=== PATIENT | male | born 1950 | race Caucasian/White ===

== ENCOUNTER 2025-02-24 13:47 | Inpatient (IN) | payer MEDICARE ==
[~2025-02-24] VITALS: Ht 172.7 cm; Wt 90.0 kg
--- NOTE | 2025-02-24 15:37 | RADIOLOGY REPORT ---
CLINICAL INDICATION: LEFT HIP PAIN TECHNIQUE: 1 radiographic views of the pelvis and 3 views of the left hip were obtained. Comparison: None FINDINGS/IMPRESSION: There is no evidence of acute fracture or dislocation. The visualized joint space is well maintained. The alignment is anatomical. There is no radiopaque foreign body.
--- NOTE | 2025-02-24 15:37 | ELECTROCARDIOGRAPH REPORT ---
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 Todd Powers Measurements Intervals [place] Rate: 76 P: 44 [place]: 196 QRS: 0 QRSD: 112 T: 65 QT: 383 QTc: 431 Interpretive Statements Sinus rhythm Incomplete right bundle branch block Electronically Signed On 02-27-2025 11:03:[address] Todd Powers Please click the below link to view image of tracing.
[2025-02-24] MEDS: diazepam 5mg tablet PO STA (15:46)
--- NOTE | 2025-02-24 15:46 | RADIOLOGY REPORT ---
EXAM: DI CHEST,SINGLE VIEW Indication: Pain Technique: Single frontal view of the chest was obtained Comparison: None FINDINGS: Lines and Tubes: None Lungs: No focal consolidation. Low lung volumes. Pleura: No effusion. No pneumothorax. Cardiomediastinal contours: Unremarkable. Atherosclerotic vascular calcifications of the thoracic ao rta are noted. Vascular stent projects over the mediastinum. Bones: No acute osseous abnormality. IMPRESSION: No acute cardiopulmonary disease. Low lung volumes.
--- NOTE | 2025-02-24 15:53 | Physician Documentation ---
History of Present Illness ~ Chief Complaint: Weakness Stated Complaint: LETHARGY Time Seen by MD: 14:49 OK to notify your PCP?: Yes Source: patient, family HPI Patient is seen today with his with concern for significant changes of cognition with significant altered mental status. Patient's states he does have the beginnings of dementia but states over the last couple of days his mental status has changed significantly. Patient has been in a long-term care facility for the last month recovering from pneumonia that was diagnosed about a month ago. Patient does have history of stroke and is not ambulatory and has weakness of the left side of his body. Patient currently is non communicative. Patient's is very concerned about him and states that his cognition has changed and been altered significantly since just two days ago. Patient has become combative sometimes with physical therapy. They have no other concern or complaint at this time. Medication Reconciliation Allergies: Coded Allergies: hydrochlorothiazide (Verified Allergy, Unknown, 02/24/25) Scheduled Aspirin (Aspirin), 1 TAB.CHEW PO DAILY, (Reported) Atorvastatin Calcium (Atorvastatin Calcium), 1 TAB PO HS, (Reported) Carvedilol (Carvedilol), 1 TAB PO BID, (Reported) Fluticasone Propionate (Fluticasone Propionate Hfa), 1 PUFFS INH BID, (Reported) Indapamide (Indapamide), 1 TAB PO DAILY, (Reported) Lacosamide (Lacosamide), 1 TAB PO BID, (Reported) Levetiracetam (Keppra), 7.5 ML PO BID, (Reported) Pantoprazole Sodium (Pantoprazole Sodium), 1 TAB PO DAILY, (Reported) Valsartan (Valsartan), 1 TAB PO DAILY, (Reported) Review of Systems Constitutional: Denies: chills, fever, weakness Eyes: Denies: pain, blurred vision ENT: Denies: ear pain, nose pain, throat pain, mouth pain Respiratory: Denies: cough, shortness of breath Cardiovascular: Denies: chest pain, palpitations Gastrointestinal: Denies: abdominal pain, nausea, vomiting Genitourinary: Denies: burning, dysuria Male Genitalia: Denies: penile discharge, testicular pain Neurological: Denies: headache, dizziness Musculoskeletal: Denies: pain, swelling Integumentary: Denies: rash, lesions Allergic/Immunologic: Denies: hives, itching Hematologic/Lymphatic: Denies: no symptoms reported Psychiatric: Denies: depression, anxiety Physical Exam Vital Signs: Temperature: 100.0, Source: Oral, Heart Rate: 100, Respiratory Rate: 16, BP: 125/75, Pulse Oximetry: 98, Weight: 90.000 Oxygen Flow Rate: 0 Physical Exam General: Awake, no acute distress. HEENT: Conjunctiva pink, Sclera clear, Mucus Membranes moist. Neck: Supple without masses and tenderness. Resp: Unlabored. Lungs clear to auscultation bilaterally. Heart: Regular Rate and rhythm, normal S1 and S2 without murmur, rub or gallop. Abdomen: Soft and non tender no organomegaly Extremities: No cyanosis,clubbing or edema. Skin: Warm and Dry. Progress Results/Orders Results/Orders Orders - JONATHON ELDRIDGE PAC Chest,Single View (02/24/25 15:25) Ct Cervical Spine (02/24/25 15:25) Ct Head (02/24/25 15:25) Straight Cath For Urine Sample (02/24/25 15:25) Saline Lock (02/24/25 ) Page Hospitalist (02/24/25 15:53) Fill Out Med Reconciliation (02/24/25 15:53) Completed Orders - JONATHON ELDRIDGE PAC Electrocardiogram (02/24/25 15:25) Cbc/Diff (02/24/25 15:25) Chest,Single View (02/24/25 15:25) Ct Cervical Spine (02/24/25 15:25) Ct Head (02/24/25 15:25) BMP (02/24/25 15:25) Hs Troponin I W Calculations (02/24/25 15:25) Hs Troponin I W Calculations (02/24/25 17:25) Diazepam Tablet (Valium Tablet) (02/24/25 15:27) Normal Saline 1000ml (Sodium Chloride 10 (02/24/25 15:27) Man Diff (02/24/25 16:05) Medications Received in ER Medications (Trade) Dose Ordered Sig/Marcello Route PRN Reason Start Time Stop Time Status Last Admin Dose Admin (Valium tablet) 5 mg ONCE STAT PO 02/24/25 15:27 02/24/25 15:30 DC 02/24/25 15:46 5 MG Sodium Chloride 1,000 ml @ 1,000 mls/hr ONCE STAT IV 02/24/25 15:27 02/24/25 16:26 DC 02/24/25 16:48 1,000 MLS/HR Vital Signs 02/24/25 02/24/25 02/24/25 14:22 14:54 14:54 Temp 100.0 Pulse 83 100 Resp 16 16 B/P (MAP) 127/85 125/75 (92) Pulse Ox 98 98 O2 Flow Rate 0 0 Laboratory Tests Test 02/24/25 16:05 02/24/25 16:59 White Blood Count 9.8 Red Blood Count 4.83 Hemoglobin 15.3 Hematocrit 45.5 Mean Corpuscular Volume 94.2 Mean Corpuscular Hemoglobin 31.7 H Mean Corpuscular Hemoglobin Concent 33.6 Red Cell Distribution Width 14.7 H Platelet Count 170 Mean Platelet Volume 8.5 Neutrophils (%) (Auto) 68.1 Lymphocytes (%) (Auto) 11.3 L Monocytes (%) (Auto) 16.0 H Eosinophils (%) (Auto) 4.3 Basophils (%) (Auto) 0.3 Neutrophils # (Auto) 6.6 Lymphocytes # (Auto) 1.1 Monocytes # (Auto) 1.6 H Eosinophils # (Auto) 0.4 Basophils # (Auto) 0.0 CBC Comment Differential Total Cells Counted 100 Neutrophils % (Manual) 74.0 Band Neutrophils % 1.0 Lymphocytes % (Manual) 14.0 L Monocytes % (Manual) 9.0 Eosinophils % (Manual) 2.0 Platelet Estimate Normal Red Blood Cell Morphology Normal Basophilic Stippling Sodium Level 140 Potassium Level 3.9 Chloride Level 105 Carbon Dioxide Level 30.4 Anion Gap 5 L Blood Urea Nitrogen 21 H Creatinine 2.04 H Estimated GFR/1.73 m2 32 BUN/Creatinine Ratio 10.3 Glucose Level 120 H Lactic Acid Level 1.6 Calcium Level 9.7 Troponin I High Sensitivity 8 Albumin 2.6 L Procalcitonin < 0.05 Chemistry Comments Urine Specimen Description Straight cath Urine Color Yellow Urine Clarity Clear Urine pH 6.0 Urine Specific [place] 1.020 Urine Protein Trace Urine Glucose (UA) Negative Urine Ketones Negative Urine Occult Blood Negative Urine Nitrite Negative Urine Bilirubin Negative Urine Urobilinogen 0.2 Urine Leukocyte Esterase Negative Urine RBC 0-2 Urine WBC None seen Urine Squamous Epithelial Cells None seen Urine Bacteria None seen Urine Mucus None seen Urine Culture Indicated Not ind Volume Urine Centrifuged 10 ml Urine Comment EKG/XRAY/CT/US/VASC/MRI Chest X-Ray : Additional Comments Chest x-ray interpreted by myself today shows no large effusion, no large infiltrate, normal mediastinum. Low lung volume. DIAGNOSTIC RADIOLOGY Patient: MARLON DEE Medical Record: [id number] [facility] : 1950, Age: 74 Sex: Male Location: ER Patient Status: [facility] ER Service Date/Time: 02/24/251524 Ordering Physician: JONATHON ELDRIDGE PAC Exam: CHEST,SINGLE VIEW EXAM: DI CHEST,SINGLE VIEW Indication: Pain Technique: Single frontal view of the chest was obtained Comparison: None FINDINGS: Lines and Tubes: None Lungs: No focal consolidation. Low lung volumes. Pleura: No effusion. No pneumothorax. Cardiomediastinal contours: Unremarkable. Atherosclerotic vascular calcifications of the thoracic aorta are noted. Vascular stent projects over the mediastinum. Bones: No acute osseous abnormality. IMPRESSION: No acute cardiopulmonary disease. Low lung volumes. Electronically Signed by:JEANETTE HUNTER MD Date & Time: 02/24/251543 Dictated by: JEANETTE HUNTER MD Dictation date and time: 02/24/251543 Primary Care Provider: NO PRIMARY CARE PROVIDER cc: JONATHON ELDRIDGE PAC ~ Bone/Soft Tissue X-Ray (Ext.) : Additional Comment X-ray of pelvis and left hip were reviewed by myself today and show no sign of acute fracture, bones in anatomic alignment, no osteolytic or blastic lesion. DIAGNOSTIC RADIOLOGY Patient: MARLON DEE Medical Record: [id number] [facility] : 1950, Age: 74 Sex: Male Location: ER Patient Status: REG ER Service Date/Time: 02/24/251 Ordering Physician: MARIBEL SUAREZ MD Exam: HIP UNILATERAL 2 VIEWS CLINICAL INDICATION: LEFT HIP PAIN TECHNIQUE: 1 radiographic views of the pelvis and 3 views of the left hip were obtained. Comparison: None FINDINGS/IMPRESSION: There is no evidence of acute fracture or dislocation. The visualized joint space is well maintained. The alignment is anatomical. There is no radiopaque foreign body. Electronically Signed by:JEANETTE HUNTER MD Date & Time: 02/24/251534 Dictated by: JEANETTE HUNTER MD Dictation date and time: 02/24/251534 Primary Care Provider: NO PRIMARY CARE PROVIDER cc: MARIBEL SUAREZ MD ~ CT : Impression CAT SCAN Patient: MARLON DEE Medical Record: [id number] [facility] : 1950, Age: 74 Sex: Male Location: ER Patient Status: REG ER Service Date/Time: 02/24/251524 Ordering Physician: JONATHON ELDRIDGE PAC Exam: CT CERVICAL SPINE EXAM: CT CT CERVICAL SPINE INDICATION: GLF TECHNIQUE: Non contrast axial images of the cervical spine have been obtained with coronal and sagittal reformatted images. CT scans at this facility use dose modulation, iterative reconstruction, and/or weight based dosing when appropriate to reduce radiation dose to as low as reasonably achievable. COMPARISON: None FINDINGS: ANATOMY: Cervical lordosis is maintained. VERTEBRAL BODIES: The vertebral bodies are normal in height and alignment. The dens is intact, the lateral masses of C1 are normally aligned, and the atlantodental interval is normal for age. SPINAL CANAL: No significant spinal canal stenosis. INTERVERTEBRAL DISCS: No CT findings to suggest traumatic disc herniation or acute hematoma. SOFT TISSUES: There is no prevertebral soft tissue swelling. OTHER: The partially visualized lung apices are clear. IMPRESSION: 1. No acute cervical spine fracture or malalignment. Electronically Signed by:LOPEZ WOODS MD Date & Time: 02/24/251642 Dictated by: LOPEZ WOODS MD Dictation date and time: 02/24/251642 Primary Care Provider: NO PRIMARY CARE PROVIDER cc: JONATHON ELDRIDGE PAC ~ CAT SCAN Patient: MARLON DEE Medical Record: [id number] [facility] : 1950, Age: 74 Sex: Male Location: ER Patient Status: [facility] ER Service Date/Time: 02/24/251524 Ordering Physician: JONATHON ELDRIDGE PAC Exam: CT HEAD EXAM: CT CT HEAD INDICATION: GLF TECHNIQUE: CT images of the head were obtained without administration of IV contrast. CT scans at this facility use dose modulation, iterative reconstruction, and/or weight based dosing when appropriate to reduce radiation dose to as low as reasonably achievable. COMPARISON: None available at the time of dictation. FINDINGS: PARENCHYMA: No acute hemorrhage. There is no mass effect, midline shift, or herniation. There is preservation of the ruiz white differentiation. Large area of encephalomalacia of the right posterior frontal lobe parietal lobe and right temporal lobe. Streak artifact in the region of the right anterior temporal lobe in the right middle cranial fossa. Encephalomalacia of the left anterior frontal lobe. Imaging findings compatible with prior insult /infarct. VENTRICLES: No hydrocephalus. The ventricles and sulcation are prominent, compatible with cerebral volume loss. EXTRA-AXIAL SPACES: No extra-axial fluid collections. OTHER: The bony structures are intact. Scattered paranasal sinus mucosal thickening. IMPRESSION: 1. No CT evidence of an acute intracranial abnormality. Electronically Signed by:LOPEZ WOODS MD Date & Time: 02/24/25 1643 Dictated by: LOPEZ WOODS MD Dictation date and time: 02/24/25 1628 Primary Care Provider: NO PRIMARY CARE PROVIDER cc: JONATHON ELDRIDGE PAC ~ Medical Decision Making Findings Patient is seen today with his with concern for significant changes of cognition with significant altered mental status. Patient's states he does have the beginnings of dementia but states over the last couple of days his mental status has changed significantly. Patient has been in a long-term care facility for the last month recovering from pneumonia that was diagnosed about a month ago. Patient does have history of stroke and is not ambulatory and has weakness of the left side of his body. Patient currently is non communicative. Patient's is very concerned about him and states that his cognition has changed and been altered significantly since just two days ago. Patient has become combative sometimes with physical therapy. They have no other concern or complaint at this time. Patient did have elevated creatinine just over two. Labs were otherwise unremarkable. CT scan of spine and head were unremarkable. Chest x-ray and left hip x-ray were also unremarkable without any sign of acute fracture. Patient was admitted to hospitalist for altered mental status and JUWAN. Departure Disposition: 09 ADMITTED INPATIENT Admitted to Inpatient Unit: to hospitalist Admission Level of Care: Med/Surg Impression: Primary Impression: Altered mental status Qualified Codes: R41.82 - Altered mental status, unspecified Additional Impression: JUWAN (acute kidney injury) Condition: Stable Additional Instructions: Patient did have elevated creatinine just over two. Labs were otherwise unremarkable. CT scan of spine and head were unremarkable. Chest x-ray and left hip x-ray were also unremarkable without any sign of acute fracture. Patient was admitted to hospitalist for altered mental status and JUWAN. Referrals: NO PRIMARY CARE PROVIDER (PCP) Signature Scribe Signature: No scribe Attestation: No scribe JONATHON ELDRIDGE PAC February 24, 2025 15:53
[2025-02-24 16:22] LABS: BASOPHILS % (AUTO) 0.3 % (0-1); EOSINOPHILS # (AUTO) 0.4 X10'3 (0-0.9); EOSINOPHILS % (AUTO) 4.3 % (0-6); HEMATOCRIT 45.5 % (42.0-52.0); HEMOGLOBIN 15.3 g/dl (14.0-17.9); LYMPHOCYTES # (AUTO) 1.1 X10'3 (1.1-4.8); LYMPHOCYTES % (AUTO) 11.3 % (21-51); MEAN CORPUSCULAR HEMOGLOBIN 31.7 PG (27.0-31.0); MEAN CORPUSCULAR HGB CONC 33.6 g/dL (33.0-36.5); MEAN CORPUSCULAR VOLUME 94.2 FL (78-98); MEAN PLATELET VOLUME 8.5 FL (7.4-10.4); MONOCYTES # (AUTO) 1.6 X10'3 (0-0.9); NEUTROPHILS # (AUTO) 6.6 X10'3 (1.8-7.7); NEUTROPHILS % (AUTO) 68.1 % (42-75); PLATELET COUNT 170 X10'3 (140-440); RED BLOOD COUNT 4.83 X10'6 (4.70-6.10); RED CELL DISTRIBUTION WIDTH 14.7 % (11.5-14.5); WHITE BLOOD COUNT 9.8 X10'3 (4.5-11.0)
[2025-02-24 16:32] LABS: ALBUMIN 2.6 G/DL (3.4-5.0); ANION GAP 5 (8-16); BLOOD UREA NITROGEN 21 MG/DL (7-18); BUN/CREATININE RATIO 10.3 (10.0-20.0); CALCIUM 9.7 MG/DL (8.5-10.1); CHLORIDE 105 MMOL/L (99-107); CREATININE 2.04 MG/DL (0.60-1.10); GLUCOSE 120 MG/DL (70-104); POTASSIUM 3.9 MMOL/L (3.5-5.1); SODIUM 140 MMOL/L (135-145); TOTAL CARBON DIOXIDE 30.4 MMOL/L (24-32); eCRCL 31 ML/MIN; eGFR 32 ML/MIN
--- NOTE | 2025-02-24 16:45 | RADIOLOGY REPORT ---
EXAM: CT CT HEAD INDICATION: GLF TECHNIQUE: CT images of the head were obtained without administration of IV contrast. CT scans at [facility] facility use dose modulation, iterative reconstruction, and/or weight based dosing when appropriate to reduce radiation dose to as low as reasonably achievable. COMPARISON: None available at the time of dictation. FINDINGS: PARENCHYMA: No acute hemorrhage. There is no mass effect, midline shift, or herniation. There is pres ervation of the ruiz white differentiation. Large area of encephalomalacia of the right posterior fro ntal lobe parietal lobe and right temporal lobe. Streak artifact in the region of the right anterior temporal lobe in the right middle cranial fossa. Encephalomalacia of the left anterior frontal lobe. Imaging findings compatible with prior insult /infarct. VENTRICLES: No hydrocephalus. The ventricles and sulcation are prominent, compatible with cerebral vo lume loss. EXTRA-AXIAL SPACES: No extra-axial fluid collections. OTHER: The bony structures are intact. Scattered paranasal sinus mucosal thickening. IMPRESSION: 1. No CT evidence of an acute intracranial abnormality.
--- NOTE | 2025-02-24 16:46 | RADIOLOGY REPORT ---
EXAM: CT CT CERVICAL SPINE INDICATION: GLF TECHNIQUE: Non contrast axial images of the cervical spine have been obtained with coronal and sagitt al reformatted images. CT scans at this facility use dose modulation, iterative reconstruction, and/o r weight based dosing when appropriate to reduce radiation dose to as low as reasonably achievable. COMPARISON: None FINDINGS: ANATOMY: Cervical lordosis is maintained. VERTEBRAL BODIES: The vertebral bodies are normal in height and alignment. The dens is intact, the la teral masses of C1 are normally aligned, and the atlantodental interval is normal for age. SPINAL CANAL: No significant spinal canal stenosis. INTERVERTEBRAL DISCS: No CT findings to suggest traumatic disc herniation or acute hematoma. SOFT TISSUES: There is no prevertebral soft tissue swelling. OTHER: The partially visualized lung apices are clear. IMPRESSION: 1. No acute cervical spine fracture or malalignment.
[2025-02-24] MEDS: normal saline 1000ml 1,000 ML IV STA (16:48)
[2025-02-24] MEDS ORDERED: magnesium sulf-water 2g/50mL 50 ML IV PRN (17:00)
[2025-02-24] MEDS ORDERED: magnesium hydroxide 30ml (MOM) UD suspension PO PRN (17:00)
[2025-02-24] MEDS ORDERED: potassium Cl 40MEQ/1/2NS 520ml 520 ML IV PRN (17:00)
[2025-02-24] MEDS ORDERED: potassium Cl 20 mEq SR tablet PO PRN ×2 (17:00)
[2025-02-24] MEDS ORDERED: magnesium sulf-water 4G/100mL 100 ML IV PRN (17:00)
[2025-02-24] MEDS ORDERED: ondansetron/PF 4mg/2ml inj IV PRN (17:00)
[2025-02-24] MEDS ORDERED: mag hydrox/Alum hydrox/simeth 30ml oral suspension PO PRN (17:00)
[2025-02-24] MEDS ORDERED: HYDROcodone/acetaminophen 10/325mg tab PO PRN (17:00)
[2025-02-24] MEDS ORDERED: acetaminophen 325mg tablet PO PRN ×2 (17:00)
[2025-02-24 17:07] LABS: TOTAL CELLS COUNTED 100
[2025-02-24 17:08] LABS: PLATELET ESTIMATE NORMAL
[2025-02-24 17:16] LABS: BILIRUBIN,URINE NEGATIVE (Neg); CLARITY,URINE CLEAR (Clear); COLOR,URINE YELLOW (Yellow); GLUCOSE, URINE NEGATIVE (Neg); KETONES,URINE NEGATIVE (Neg); LEUKOCYTE ESTERASE ,URINE NEGATIVE (Neg); NITRITES, URINE NEGATIVE (Neg); OCCULT BLOOD,URINE NEGATIVE (Neg); PROTEIN,URINE TRACE mg/dl (Neg); UROBILINOGEN,URINE 0.2 E.U/dL (0.2-1.0)
[2025-02-24] MEDS ORDERED: PANT40TA54 PO (17:19)
[2025-02-24] MEDS ORDERED: CARV6.253 PO (17:19)
[2025-02-24] MEDS ORDERED: FLUT10.67 INH (17:19)
[2025-02-24] MEDS ORDERED: LACO200T4 PO (17:19)
[2025-02-24] MEDS ORDERED: ASPI-1265 PO (17:19)
[2025-02-24] MEDS ORDERED: INDA1.255 PO (17:19)
[2025-02-24] MEDS ORDERED: LEVE100S PO (17:19)
[2025-02-24] MEDS ORDERED: ATOR40TA72 PO (17:19)
[2025-02-24] MEDS ORDERED: VALS160T30 PO (17:19)
[2025-02-24 17:30] LABS: UA COLLECTION TYPE STRAIGHT CATH
[2025-02-24 17:31] LABS: BACTERIA,URINE NONE SEEN /HPF (Neg); MUCUS STRANDS NONE SEEN /LPF (Neg); RBC,URINE 0-2 /HPF (0-2); SQUAMOUS EPITHELIAL CELL,UR NONE SEEN /LPF (FEW); WBC,URINE NONE SEEN /HPF (0-4)
--- NOTE | 2025-02-24 18:04 | HISTORY AND PHYSICAL ---
History & Physical Providers to CC ~ History of Present Illness Reason for Admit\Complaint: Metabolic encephalopathy History of Present Illness Elvis Medrano is a 74-year-old male with past medical history of dementia, nonverbal at baseline, CVA with residual left-sided weakness, seizures, recent pneumonia who was brought to the ED by his spouse due to significant altered mental status x 2 days. Patient's was not present at bedside at the time of admission assessment therefore history taking was limited and most initial history was taken from ED note. Per ED note, patient has been in a long-term care facility for the last month recovering from pneumonia. Patient is to be admitted for further workups and treatment. Allergies: Coded Allergies: hydrochlorothiazide (Verified Allergy, Unknown, 02/24/25) Home Medications Home Medications Active Reported Aspirin 81 Mg Tab.chew 1 Tab.chew PO DAILY Atorvastatin Calcium 40 Mg Tablet 1 Tab PO HS Pantoprazole Sodium 40 Mg Tablet.dr 1 Tab PO DAILY Indapamide 1.25 Mg Tablet 1 Tab PO DAILY Lacosamide 200 Mg Tablet 1 Tab PO BID Keppra (Levetiracetam) 100 Mg/Ml Solution 7.5 Ml PO BID Fluticasone Propionate Hfa (Fluticasone Propionate) 44 Mcg Aer.w.adap 1 Puffs INH BID Carvedilol 6.25 Mg Tablet 1 Tab PO BID Valsartan 160 Mg Tablet 1 Tab PO DAILY Past Medical History Past Medical History Dementia CVA Pneumonia Seizures Hyperlipidemia Hypertension Past Surgical History Surgical History Comment Noncontributory Past Social History Social History Comment Alcohol: No Tobacco: No Illicit drug use: No Living situation: Assisted living facility ROS ROS Other than positives in HPI, all 14 review of systems are negative Exam Vitals: Vital Signs Date Time Temp Pulse Resp B/P (MAP) Pulse Ox O2 Delivery O2 Flow Rate FiO2 02/24/25 14:54 02/24/25 14:54 100 16 98 0 02/24/25 14:22 100.0 General: NAD, demented, nonverbal HEENT: Normocephalic, PERRLA Neck: Supple, trachea midline, no JVD Chest: Clear to auscultation bilaterally Cardiovascular: RRR, S1&S2 Abdomen: Soft and nontender Extremities: No cyanosis/clubbing/or edema Central Nervous System: No focal deficits Musculoskeletal: No paraspinal muscle tenderness, no muscle spasm Skin: Warm and intact Diagnostic Data Last Recorded Lab Results: 02/24/25 1605 02/24/25 1605 Additional Plan # Metabolic encephalopathy # Dementia, nonverbal -recent pna, fever today; CT head negative, CT cervical spine negative, hip x- ray negative, chest x-ray negative, normal lactic acid, no leukocytosis, negative procal -start abx, IVF, aspiration precaution -follow CT chest # Severe malnutrition -station mechanic consult # CVA w/ left-sided residual weakness # HLD # HTN -unknown etiology atherosclerotic vs embolic -admit on tele, start aspirin, statin, losartan -follow lipid panel # Seizure disorder -continue home Keppra, follow Keppra level DVT/VTE prophylaxis: Heparin Code status: Full code by default until further discussion with spouse Date of Service: February 24, 2025 Billing Provider: CARLINE SCHROEDER Common Visit Codes: [id number]-[id number] INP/OBS CARE (HIGH) CARLINE SCHROEDER February 24, 2025 18:04
[2025-02-24] MEDS: aspirin 81mg tab.chew PO ONE (18:10)
[2025-02-24] MEDS: normal saline 1000ml 1,000 ML IV SCH (18:28)
[2025-02-24] MEDS ORDERED: acetaminophen 1,000mg/100ml IV 100 ML IV PRN (19:00)
[2025-02-24] MEDS: CefTRIAXone 2gm/D5W 50ml BAG 50 ML IV ONE (19:12)
[2025-02-24] MEDS: docusate sod 100mg capsule PO SCH (19:25)
[2025-02-24] MEDS: K and/or MAG REPLACEMENT MC SCH (19:25)
[2025-02-24] MEDS: losartan 50mg tablet PO ONE (19:25)
[2025-02-24] MEDS: azithromycin/NS 500mg/250ml 250 ML IV ONE (19:55)
[2025-02-24] MEDS: heparin, porcine 5000 units/ml vial SQ SCH (20:00)
--- NOTE | 2025-02-24 20:20 | RADIOLOGY REPORT ---
Procedure: CT CT CHEST [facility] Study Date and Requested Time: 02/24/2025 07:35 P M History: Pneumonia, fever Comparison: None Dose: CTDI: 18.43 mGy DLP: 616.27 mGycm Technique: Multiplanar images obtained through the chest without contrast Findings: The thyroid gland is unremarkable. Mild cardiomegaly. Aortic valvular replacement. Heavy atherosclerotic calcification of the left ante rior descending artery versus stenting. No evidence of aortic aneurysm. The pulmonary trunk is devendra l in size. No significant mediastinal or hilar lymphadenopathy. Bilateral dependent , lingula and right middle lobe atelectasis. No pneumothorax, pleural effusion or focal airspace consolidation. Partially imaged 4.3 cm left renal upper pole cyst. Otherwise, Partial view of the upper abdomen is unremarkable. The soft tissues are unremarkable. Sclerotic focus over the left proximal humerus and left scapula wh ich represent bone islands / blastic lesions. Mild loss of vertebral body height of T4 through T7 of unknown chronicity, likely chronic. Impression: Right middle lobe, lingula and Bilateral dependent atelectasis. Otherwise , no evidence of acute intr athoracic abnormalities. Partially imaged 4.3 cm left renal upper pole cyst.
[2025-02-24] MEDS: atorvastatin 20mg tablet PO SCH ×2 (20:57→21:16)
[2025-02-24] MEDS: levetiracetam 100mg/ml oral solution 5ml UD cup PO SCH (21:05)
[2025-02-25] MEDS: aspirin 81mg tab.chew PO SCH (09:42)
[2025-02-25] MEDS: losartan 50mg tablet PO SCH (09:43)
[2025-02-25 10:26] LABS: BASOPHILS % (AUTO) 0.3 % (0-1); EOSINOPHILS # (AUTO) 0.3 X10'3 (0-0.9); EOSINOPHILS % (AUTO) 3.7 % (0-6); HEMATOCRIT 44.6 % (42.0-52.0); LYMPHOCYTES % (AUTO) 13.1 % (21-51); MEAN CORPUSCULAR HEMOGLOBIN 31.6 PG (27.0-31.0); MEAN CORPUSCULAR HGB CONC 33.6 g/dL (33.0-36.5); MEAN CORPUSCULAR VOLUME 93.8 FL (78-98); MEAN PLATELET VOLUME 8.6 FL (7.4-10.4); MONOCYTES % (AUTO) 12.5 % (2-12); NEUTROPHILS # (AUTO) 5.6 X10'3 (1.8-7.7); NEUTROPHILS % (AUTO) 70.4 % (42-75); PLATELET COUNT 179 X10'3 (140-440); RED BLOOD COUNT 4.75 X10'6 (4.70-6.10); RED CELL DISTRIBUTION WIDTH 14.3 % (11.5-14.5)
[2025-02-25 10:40] LABS: ALANINE AMINOTRANSFERASE 14 U/L (12-78); ALBUMIN 2.6 G/DL (3.4-5.0); ALBUMIN/GLOBULIN RATIO 0.5 (1.1-1.5); ALKALINE PHOSPHATASE 97 IU/L (46-116); ANION GAP 6 (8-16); ASPARTATE AMINO TRANSFERASE 10 U/L (10-37); BILIRUBIN,TOTAL 0.7 MG/DL (0.1-1.0); BLOOD UREA NITROGEN 19 MG/DL (7-18); BUN/CREATININE RATIO 11.2 (10.0-20.0); CALCIUM 9.8 MG/DL (8.5-10.1); CHLORIDE 106 MMOL/L (99-107); CHOL/HDL RATIO 3.8 (0.00-4.99); CHOLESTEROL 164 MG/DL (0-200); CREATININE 1.69 MG/DL (0.60-1.10); GLUCOSE 98 MG/DL (70-104); HDL CHOLESTEROL 43 MG/DL (35-60); LDL CHOLESTEROL 100 MG/DL (50-100); MAGNESIUM 1.7 MG/DL (1.5-2.4); POTASSIUM 3.9 MMOL/L (3.5-5.1); SODIUM 142 MMOL/L (135-145); TOTAL CARBON DIOXIDE 29.7 MMOL/L (24-32); TOTAL PROTEIN 7.7 G/DL (6.4-8.2); TRIGLYCERIDES 115 MG/DL (20-135); eCRCL 38 ML/MIN; eGFR 40 ML/MIN
[2025-02-25] MEDS: azithromycin/NS 500mg/250ml 250 ML IV SCH (12:29)
[2025-02-25] MEDS: CefTRIAXone 2gm/D5W 50ml BAG 50 ML IV SCH (12:29)
--- NOTE | 2025-02-25 12:54 | PROGRESS NOTE ---
Daily Progress Note Providers to CC ~ Antibiotic Timeout Antibiotic Ordered?: Yes If Yes, Indications: CAP Subjective No acute events overnight. Patient examined at bedside in the presence of his who was able to provide previous medical history. No new complaints, not in acute distress. Patient denies chest pain, sob, palpitations, abdominal pain, n/v/d. Vss, labs notable for downtrending creatinine on IVF. Objective Vital Signs Date Time Temp Pulse Resp B/P (MAP) Pulse Ox O2 Delivery O2 Flow Rate FiO2 02/25/25 10:41 16 02/25/25 09:43 70 02/25/25 09:38 100.3 169/78 (108) 96 0 Result Diagram: 02/25/2595302/25/25953 Physical Exam General: Generalized weakness, NAD, demented, nonverbal at baseline HEENT: Normocephalic, PERRLA Neck: Supple, trachea midline, no JVD Chest: Clear to auscultation bilaterally Cardiovascular: RRR, S1&S2 Abdomen: Soft and nontender Extremities: No cyanosis/clubbing/or edema Central Nervous System: No focal deficits Musculoskeletal: Left-sided weakness Skin: Warm and intact Problem\Assessment\Plan # Prerenal JUWAN on CKD III 2/2 dehydration/vasomotor nephropathy # Hx CKD stage III # Community-acquired pneumonia- POA # Metabolic encephalopathy 2/2 above # Dementia, nonverbal -recent pna, fever today; CT head negative, CT cervical spine negative, hip x- ray negative, chest x-ray negative, normal lactic acid, no leukocytosis, negative procal -start abx, IVF, aspiration precaution -02/25: Cr downtrending on IVF # Severe malnutrition -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 Advance care planning: Discussed with patient the importance of advance care planning in case of emergent situation. We discussed various resuscitative measures/ ACP with the patient at the time of admission. Patient voiced understanding and patient has decided on a DNR/DNI status. Date of Service: February 25, 2025 Billing Provider: CARLINE SCHROEDER Common Visit Codes: [id number] INP/OBS CARE(HIGH) Secondary Visit Codes: [id number] CARE PLAN 30 MINUTES CARLINE SCHROEDER February 25, 2025 12:54
[2025-02-25] MEDS ORDERED: hydrALAZINE 20mg/ml inj. IV PRN (12:55)
[2025-02-25] MEDS: HYDROcodone/acetaminophen 5mg/325mg tablet PO PRN (13:20)
[2025-02-25 14:30] VITALS: BP 137/78; PULSE 95; RESP 18; TEMP 98.4; O2SAT 94
[2025-02-25 18:00] VITALS: BP 95/55; PULSE 71; RESP 14; TEMP 97; O2SAT 94
--- NOTE | 2025-02-25 18:22 | VASCULAR REPORT ---
Procedure: [facility] Study Date and Requested Time: 02/25/2025 02:57 PM History: Swollen left arm Comparison: None Technique: Multiple high resolution grayscale images with and without compression obtained of the krystal ateral upper extremity veins, including the internal jugular, subclavian, axillary, brachial, radial, and ulnar veins. Augmentation performed as indicated. Color and spectral doppler flow images obtaine d as indicated. Findings: No visible intraluminal venous thrombus. No evidence of incompressibility or abnormal color or spectr al Doppler flow visualized in the bilateral upper extremity veins including the internal jugular, sub clavian, axillary, brachial, radial, and ulnar veins. Impression: No sonographic evidence of bilateral upper extremity deep venous thrombosis.
[2025-02-25 20:00] VITALS: RESP 18; O2SAT 94
[2025-02-25] MEDS: LACOSAMIDE 50 MG TABLET PO SCH (20:00)
[2025-02-25 22:00] VITALS: BP 132/103; PULSE 87; RESP 16; TEMP 97.7; O2SAT 93
[2025-02-25 22:49] LABS: TOTAL PROTEIN,URINE RANDOM 51.5 MG/DL
[2025-02-26 06:00] VITALS: BP 156/111; PULSE 66; RESP 16; TEMP 98.1; O2SAT 94
[2025-02-26] MEDS: losartan 50mg tablet PO SCH (07:49)
[2025-02-26 08:27] LABS: BASOPHILS # (AUTO) 0.1 X10'3 (0-0.2); BASOPHILS % (AUTO) 0.5 % (0-1); EOSINOPHILS # (AUTO) 0.6 X10'3 (0-0.9); MONOCYTES # (AUTO) 1.4 X10'3 (0-0.9)
[2025-02-26 08:29] LABS: EOSINOPHILS % (AUTO) 6.4 % (0-6); HEMATOCRIT 40.9 % (42.0-52.0); HEMOGLOBIN 13.9 g/dl (14.0-17.9); LYMPHOCYTES # (AUTO) 1.4 X10'3 (1.1-4.8); LYMPHOCYTES % (AUTO) 14.7 % (21-51); MEAN CORPUSCULAR HEMOGLOBIN 31.5 PG (27.0-31.0); MEAN CORPUSCULAR HGB CONC 33.9 g/dL (33.0-36.5); MEAN CORPUSCULAR VOLUME 93.1 FL (78-98); MEAN PLATELET VOLUME 8.8 FL (7.4-10.4); NEUTROPHILS # (AUTO) 6.3 X10'3 (1.8-7.7); NEUTROPHILS % (AUTO) 64.4 % (42-75); PLATELET COUNT 179 X10'3 (140-440); RED CELL DISTRIBUTION WIDTH 13.9 % (11.5-14.5); WHITE BLOOD COUNT 9.7 X10'3 (4.5-11.0)
[2025-02-26 08:56] LABS: ALANINE AMINOTRANSFERASE 12 U/L (12-78); ALBUMIN 2.3 G/DL (3.4-5.0); ALBUMIN/GLOBULIN RATIO 0.5 (1.1-1.5); ALKALINE PHOSPHATASE 87 IU/L (46-116); ANION GAP 5 (8-16); ASPARTATE AMINO TRANSFERASE 14 U/L (10-37); BILIRUBIN,TOTAL 0.4 MG/DL (0.1-1.0); BLOOD UREA NITROGEN 19 MG/DL (7-18); BUN/CREATININE RATIO 10.7 (10.0-20.0); CALCIUM 9.6 MG/DL (8.5-10.1); CHLORIDE 109 MMOL/L (99-107); CREATININE 1.78 MG/DL (0.60-1.10); GLUCOSE 102 MG/DL (70-104); MAGNESIUM 1.8 MG/DL (1.5-2.4); POTASSIUM 4.5 MMOL/L (3.5-5.1); SODIUM 142 MMOL/L (135-145); TOTAL CARBON DIOXIDE 28.3 MMOL/L (24-32); eCRCL 36 ML/MIN; eGFR 38 ML/MIN
[2025-02-26] MEDS: levoFLOXACIN 750MG TABLET PO SCH (09:12)
[2025-02-26 10:00] VITALS: BP 135/87; PULSE 88; RESP 16; TEMP 97.8; O2SAT 96
--- NOTE | 2025-02-26 16:07 | DISCHARGE SUMMARY ---
Discharge Summary Providers to CC ~ Discharge Summary Admission Diagnosis: metabolic encephalopathy, JUWAN, PNA Hospital Course DATE OF ADMISSION: 02/24/25 DATE OF DISCHARGE: 02/26/25 Discharge Diagnosis\Comment: Prerenal JUWAN 2/2 dehydration/vasomotor nephropathy- POA Dehydration- POA Community-acquired pneumonia, covering for Gram-positive and Gram-negative- POA Metabolic encephalopathy 2/2 above Dementia, nonverbal Severe malnutrition CVA w/ left-sided residual weakness HLD HTN Seizure disorder Generalized Weakness Operations\Procedures: None Consultants: None Complications: None Condition on DC: Stable for transfer Discharge Summary: History of Present Illness Elvis Medrano is a 74-year-old male with past medical history of dementia, nonverbal at baseline, seizure disorder, hypertension, hyperlipidemia, CKD stage III, CVA with residual left-sided weakness, recent pneumonia who was brought to the ED by his spouse due to significant altered mental status x 2 days and recent poor oral intake. Patient's was not present at bedside at the time of admission assessment therefore history taking was limited and most initial history was taken from ED note. Per ED note, patient has been in a long-term care facility for the last month recovering from pneumonia. Patient is to be admitted for further workups and treatment. Hospital Course Diagnostic findings were notable for abnormal renal function, fever, CT chest findings of pneumonia, notable physical assessment of dehydration. Pertinent negative findings were negative head CT, negative CT cervical spine, negative hip x-ray, negative chest x-ray, normal lactic acid, no leukocytosis, negative procal. Patient was put on aspiration precaution and was treated with empirical antibiotics and intravenous fluids. With the start of treatment, patient's mentation and renal function improved. Patient did not experience further complications throughout the entire hospital stay and made a good recovery. Patient was seen and examined on the day of discharge. On day of discharge, vss, afebrile, and labs notable for stable renal function. All labs, diagnostic workups, discharge plan discussed with patient's spouse Corinne in details during visit before discharge. All questions and concerns answered to the best of my professional knowledge. Patient is to be discharged back to rehab for continued management and to follow-up with PCP and outpatient [employer] administrator upon discharge. Physical Exam General: Generalized weakness, NAD, demented, nonverbal at baseline HEENT: Normocephalic, PERRLA Neck: Supple, trachea midline, no JVD Chest: Clear to auscultation bilaterally Cardiovascular: RRR, S1&S2 Abdomen: Soft and nontender Extremities: No cyanosis/clubbing/or edema Central Nervous System: No focal deficits Musculoskeletal: Left-sided weakness Skin: Warm and intact *Problems/Diagnosis: (1) Altered mental status Status: Acute (2) JUWAN (acute kidney injury) Status: Acute Total Time Spent on D/C: > 30 Minutes Date of Service: February 26, 2025 Billing Provider: CARLINE SCHROEDER Common Visit Codes: 95047-QOR/OBS DISCH DAY >30min Problem Qualifiers (1) Altered mental status: Qualified Codes: R41.82 - Altered mental status, unspecified CARLINE SCHROEDER February 26, 2025 16:07
[2025-02-26] MEDS ORDERED: atorvastatin 20mg tablet PO SCH (21:00)
== END 2025-02-26 14:50 | DRG 640 ==
LOC: ER 13:48 → ED HOLD 17:01 → ORTHO 4S 02-25 14:20
PROVIDERS: ADMIT Nurse Practitioner Family; ATTEND Nurse Practitioner Family
PROC: BW281ZZ Computerized Tomography (CT Scan) of Head using Low Osmolar Contrast (ICD-10-PCS; principal; 2025-02-24)
DX: E86.0 Dehydration (principal); E43 Unspecified severe protein-calorie malnutrition; J15.69 Pneumonia due to other Gram-negative bacteria; N17.0 Acute kidney failure with tubular necrosis; G93.41 Metabolic encephalopathy; J15.9 Unspecified bacterial pneumonia; I69.354 Hemiplegia and hemiparesis following cerebral infarction affecting left non-dominant side; I12.9 Hypertensive chronic kidney disease with stage 1 through stage 4 chronic kidney disease, or unspecified chronic kidney disease; G40.909 Epilepsy, unspecified, not intractable, without status epilepticus; E78.5 Hyperlipidemia, unspecified; N18.30 Chronic kidney disease, stage 3 unspecified; Z66 Do not resuscitate; F03.90 Unspecified dementia, unspecified severity, without behavioral disturbance, psychotic disturbance, mood disturbance, and anxiety; Z88.8 Allergy status to other drugs, medicaments and biological substances; Z79.82 Long term (current) use of aspirin; Z79.899 Other long term (current) drug therapy; Z68.30 Body mass index [BMI] 30.0-30.9, adult
CPT/HCPCS: 36415; 70450; 71045; 71250; 72125; 73502; 80048; 80053; 80061; 80177; 81001; 82570; 82945; 83605; 83735; 84133; 84145; 84156; 84300; 84484; 85007; 85025; 87040; 87081; 92508; 92616; 93005; 93970; 96365; 96367; 99285; A6213; A6590; C1758; G0378; J0456; J0696; J1644; J1953; J7030